=== PATIENT | female | born 1960 | race Caucasian/White ===

== ENCOUNTER 2016-12-27 18:55 | Emergency (ER) | payer OTHER ==
[2016-12-27 19:34] LABS: Hematocrit 39.8 % (37.0-47.0); Hemoglobin 13.4 gm/dL (12.5-16.0); Mean Cell Volume 87.5 fl (78-100); Mean Corpuscular Hemoglobin 29.5 pg (27-31); Mean Corpuscular Hgb Conc 33.7 g/dl (32-36); Mean Platelet Volume 10.4 fl (6.0-9.5); Neutrophil % 52.6 % (42-75.0); Platelet Count 292 K/mm3 (150-450); Red Blood Count 4.55 M/mm3 (4.2-5.4); Red Cell Distribution Width 11.9 % (11.5-14.0); White Blood Count 11.5 K/mm3 (4.0-10.5)
--- NOTE | 2016-12-27 19:37 | ERNOTE ---
Lower Extremity HPI - Narrative Date of Service: 12/27/16 - General Lower Extremities Pain: leg: left - sorness and had a cramp in it earlier today Time Seen by Provider: 12/27/16 19:08 Source: patient Exam Limitations: no limitations - Immun/Allergies/Home Medications Immunizations: IMMUNIZATION HX Immunizations Up to Date Yes History of Influenza Vaccine Yes Hx Pneumococcal Vaccination Yes Allergies/Adverse Reactions: Allergies Allergy/AdvReac Type Severity Reaction Status Date / Time ciprofloxacin [From Cipro] Allergy Severe Hives Verified 12/27/16 19:21 doxycycline Allergy Severe Hives Verified 12/27/16 19:21 Penicillins Allergy Severe Hives Verified 12/27/16 19:21 sulfamethoxazole Allergy Intermediate Other Verified 12/27/16 19:21 [From Bactrim] levofloxacin [From Levaquin] Allergy Mild Other Verified 12/27/16 19:21 trimethoprim [From Bactrim] Allergy Mild Other Verified 12/27/16 19:21 Home Medications: HOME MEDICATIONS Albuterol Sulfate [Ventolin HFA] 1 puff IH Q6H PRN 12/27/16 [Last Taken Unknown] Celecoxib [Celebrex] 200 mg PO BID 12/27/16 [Last Taken Unknown] Clindamycin HCl [Cleocin HCl] 300 mg PO TID #30 capsule 12/27/16 [Last Taken Unknown] Furosemide [Lasix] 20 mg PO DAILY 12/27/16 [Last Taken Unknown] Ipratropium [place] 0.2 mg IH QID 12/27/16 [Last Taken Unknown] Levalbuterol HCl [Xopenex] 0.31 mg IH DAILY 12/27/16 [Last Taken Unknown] Multivit-Min/Iron Fum/Folic AC [Hinxj-Xrbhzbx-Fwhnzjfb Tablet] 1 each PO DAILY 12/27/16 [Last Taken Unknown] Pantoprazole Sodium [Protonix] 40 mg PO BID 12/27/16 [Last Taken Unknown] Sodium Chloride For Inhalation [Hyper-Yoan] 4 ml IH DAILY 12/27/16 [Last Taken Unknown] - History of Present Illness Narrative: 56-year-old female presents to the emergency room for left lower leg pain with numbness in her toes. Patient states earlier today showed a cramp in her left leg and since then she has no cerebellar toes are slightly numb. Patient has a history of varicose veins that she is frequently had cellulites with. Date (Duration): 12/27/16 Occurred: this evening Location of Incident: home Method of Injury: Reports: no apparent injury Loss of Consciousness: Reports: no loss of consciousness Associated Symptoms: Reports: sensory loss. Denies: unable to bear weight, snapping, popping sensation, dizzy/light headedness, headache, weakness, chest pain, vomiting/diarrhea, bowel/bladder problems Other Injuries: Reports: none Subsequent Symptoms: Reports: numbness - to toes on left foot Prior Treament: Reports: similar symptoms before Review of Systems - Review of Systems Constitutional: Present: no symptoms reported EYE: Present: no symptoms reported ENT: Present: no symptoms reported Respiratory: Present: no symptoms reported Cardiology: Present: no symptoms reported Gastrointestinal/Abdominal: Present: no symptoms reported Genitourinary: Present: no symptoms reported Musculoskeletal: Present: See HPI, muscle pain, muscle stiffness Skin: Present: See HPI, change in color Neurological: Present: See HPI, numbness - left toes Endocrine: Present: no symptoms reported Hematologic/Lymphatic: Present: no symptoms reported Psych: Present: no symptoms reported All Other Systems: All systems neg except as marked - Patient's Past Medical History Patient History - Medical: Rheumatoid Arthritis, Other Patient History - Cardiac/Respiratory: Other Patient History - Cancer: No Hx of Cancer Patient History - Surgical Procedures: Appendectomy, Hysterectomy, T & A, Orthopedic, Urology Patient History - Other: None - Social History Living Situations: home Abuse History: No History of abuse Psych History: No pertinent hx Smoking Status: Never smoker Alcohol Use: none Drug Use: none - Immunizations Immunizations Up to Date: Yes Hx Pneumococcal Vaccination: Yes History of Influenza Vaccine: Yes Physical Exam - Physical Exam Narrative: Patient appears to have bilateral lower extremity edema and there is a color difference between left leg and right leg. Right leg does appear more pale left leg physical darker in color. Left leg does have more varicose veins with several areas that are reddened in color. Both lower extremities are mandy in color. 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 She states that she has been trying to put her legs up on a box when she is at work. 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 Neurological Exam: Present: alert, oriented, normal mood/affect, no motor/ sensory deficits Skin Exam: Present: normal color, warm/dry Lymphatic Exam: Present: no adenopathy ED Progress - Results and Orders Patient's Lab Results:: I have reviewed the patient's lab results. Results and Orders: elevated wbc - Vital Signs Vital Signs: Vital Signs 12/27/16 18:58 Temperature 37.2 C Pulse Rate 98 Respiratory 18 Rate Blood Pressure 162/89 O2 Sat by Pulse 96 Oximetry - CT/Ultrasound CT/Ultrasound Narrative: [facility] PATIENT RADIOLOGY STUDY REPORT Patient Patient Name:MANSOOR RASHEED Date: 1960 Sex: F Order Number: [id number] Unique Exam ID: [id number] Exam Requested: VENOUS-LT - US Venous Ext Limited LT * Date Scheduled: 12-27-2016 07:24 PM Study Priority: Requesting Service: Requesting Physician: Tristen Olmstead Reason for Exam: swelling pain in L calf Radiological Report : [place] [address] NAME: MANSOOR RASHEED : 1960 MR #: [id number] CC: Tristen GOMES; Amado Montero MD LOC: ER ADM DATE: X-RAY REPORT [id number] ULT/US Venous Ext Limited LT * Exam Date: 12/27/2016 19:24 Ordering Physician: Tristen Olmstead History: Swelling and pain in the left calf. Varicose veins. Rule out DVT. Technique: Multiple sonographic images of the deep venous system of the left lower extremity performed including color and spectral Doppler evaluation. Findings: Exam shows good compressibility, adequate venous waveform, normal augmentation, and adequate color Doppler signal throughout. No intraluminal thrombus identified. There are several varicosities with no superficial thrombus identified. IMPRESSION: Negative exam. No DVT. Electronically signed by Amado Hayes M.D.. Amado Hayes MD Dict: 12/27/162033 Typed: 12/27/1612/27/16203312/27/162039 [ rep ct labl] [ rep ct name suf] [ rep ct add1] [ rep ct add2] [ rep ct city], [ rep ct state] [ rep ct zip] Approved by: Amado Hayes Approval Date: 12-27-2016 Approval Time: 08:34 PM THIS REPORT WAS RECEIVED FROM THE [employer] SYSTEM - Progress/Reassessment Chief Complaint: Lower Extremity Pain/ Injury Progress:: Improved Plan - Plan Plan: patient is to follow up with her PC in a few days. Departure Clinical Impression: Cellulitis Qualifiers: Site of cellulitis: extremity Site of cellulitis of extremity: lower extremity Laterality: left Qualified Code(s): L03.116 - Cellulitis of left lower limb - Departure Disposition: Home Follow Up Needed Condition: Stable Instructions: Cellulitis, Adult, [id number] Additional Instructions: Continue any previous home medications as directed. Follow up with her primary care provider in the next 2-3 days. Return to the emergency room if symptoms worsen or persist. He will take [id number] anti-inflammatory such as ibuprofen or Aleve as needed for pain. Keep your legs elevated when possible. Referrals: Natalia Miles MD [Primary Care Provider] - Prescriptions: Clindamycin HCl [Cleocin HCl] 300 mg PO TID #30 capsule
[2016-12-27 21:19] VITALS: BP 138/79
[2016-12-27] MEDS ORDERED: CLINDAMYCIN HCL 150 MG CAPSULE PO ONE (21:32)
[2016-12-27] MEDS ORDERED: CLINDAMYCIN HCL 150 MG CAPSULE ONE (21:37)
== END 2016-12-27 21:42 | disposition home or self-care (01) ==
LOC: ER 18:55
DX: L03.116 Cellulitis of left lower limb (principal); M06.9 Rheumatoid arthritis, unspecified